=== PATIENT | female | born 1970 | race Caucasian/White ===

== ENCOUNTER → 2020-10-28 | Outpatient (CLI) | payer MEDICARE, OTHER ==
[~2020-10-28] MED LIST: ASPIR-LOW81 MG PO; BENLYSTA 400 M400 MG IV; BIOTIN5 M1 PO; BUSPAR 5MG TABLE5 MG PO; CITALOPRAM HBR40 MG PO; CRESTOR 10 MG T10 MG PO; CRESTOR10 MG PO; CYMBALTA60 MG PO; ESTRADIOL1 EAC1 TOP; HYDROXYCHLOROQ200 MG PO; IMDUR ER TAB 6060 MG PO; IPRAT-ALBUT 0.5-3 ML INH; ISOSORBIDE MONO30 MG PO; LIORESAL TAB 1010 MG PO; MELOXICAM7.5 MG PO; METOPROLOL SUC100 MG PO; NEURONTIN 300300 MG PO; NITROSTAT 0.40.4 MG SL; OMEPRAZOLE20 MG PO; PLAQUENIL 200200 MG PO; PREDNISONE 20 M20 MG GT; PRILOSEC OTC20 MG PO; PROGESTERONE100 MG PO; PROVENTIL HFA 61 INH INH; SPIRIVA HANDIH18 MCG INH; SPIRIVA RESPIMAT4 GM INH; SYNTHROID25 MCG PO; TIROSINT50 MCG PO; TOPROL XL 100100 MG PO; VENTOLIN/PROVE0.5 ML INH; VITAMIN B-1000 MCG/M IM; XELJANZ5 MG PO
== END ==
LOC: SLEEP-COR 10:03
DX: G47.33 Obstructive sleep apnea (adult) (pediatric) (principal)
CPT/HCPCS: 95810